=== PATIENT | female | born 1935 | race Caucasian/White ===

== ENCOUNTER 2017-06-29 08:46 | Day surgery (SDC) | payer MEDICARE, MEDICAID ==
[2017-06-29] MEDS ORDERED: Sodium Chloride 0.9% 20 ML ONE (09:05)
[2017-06-29 10:51] VITALS: TEMP 98.1
[2017-06-29 12:45] VITALS: BP 140/65
--- NOTE | 2017-06-29 13:48 | CON ---
DATE OF CONSULTATION: 06/29/2017 NEPHROLOGY CONSULTATION REASON FOR CONSULTATION: End-stage kidney disease and anemia. HISTORY OF PRESENT ILLNESS: This is an 82-year-old female who had a significant drop in hemoglobin to 8 and significant and was sent over to the hospital for transfusion. The patient denies an y nausea, vomiting or chest pain. PAST MEDICAL HISTORY: Significant for hypertension, end-stage renal disease, history of AV fistula, history of tunneled dialysis catheter, history of renal cell carcinoma with mets and chemotherapy, history of nephrectomy. ALLERGIES: Reviewed. HOME MEDICATIONS: List reviewed. REVIEW OF SYSTEMS: A 15-point review of systems was performed and was negative except for positives noted above. GENERAL: Weakness- HEAD: Headache- NECK: No swelling or lumps. NOSE: No epistaxis or discharge. EYES: No diplopia or pain. RESPIRATORY: Dyspnea- CARDIOVASCULAR: Chest pain- GASTROINTESTINAL: Nausea- /STAFF THERAPIST: Hematuria- MUSCULOSKELETAL: No joint pain. NEUROPSYCHIATIC SYSTEMS: No suicidal ideation. No ideation. SKIN: Denies any rash or ulcer. CONSTITUTIONAL: No fever or chills. PHYSICAL EXAMINATION: GENERAL: Patient is awake, alert. VITAL SIGNS: Afebrile, pulse 70, breathing at 16, blood pressure 120/70. GENERAL APPEARANCE AND MENTAL STATUS: Fair. HEAD/NECK: Normocephalic. Atraumatic. EYES: EOMI. No deformity. EARS: Clear. No ulcers. NOSE: Intact. No lesions. MOUTH: Clear. No discharge. THROAT: Clear. No exudate. LUNGS: Clear. No crackles. CARDIAC: S1, S2. No rub. ABDOMEN: Benign. BS+. GENITALIA/RECTUM: Davila absent. BACK/EXTREMITIES: Edema 0+ Ulcer- NEUROLOGICAL: Alert and motor intact. SKIN: Rash- Bruise- LYMPHATICS: Edema- Ulcer- LABORATORY: Pending. ASSESSMENT AND RECOMMENDATIONS: 1. Stage 6 chronic kidney disease. We will plan dialysis today. 2. Anemia, status post transfusion. 3. Hyperkalemia. Plan dialysis.
== END 2017-06-29 12:45 | disposition home or self-care (01) ==
LOC: ONC/OP 08:46
PROVIDERS: ATTEND Internal Medicine Nephrology
PROC: 30233N1 Transfusion of Nonautologous Red Blood Cells into Peripheral Vein, Percutaneous Approach (ICD-10-PCS; principal; 2017-06-29)
DX: D64.9 Anemia, unspecified (principal); I12.0 Hypertensive chronic kidney disease with stage 5 chronic kidney disease or end stage renal disease; N18.6 End stage renal disease; E87.5 Hyperkalemia; Z99.2 Dependence on renal dialysis; Z90.5 Acquired absence of kidney; Z98.890 Other specified postprocedural states; Z85.51 Personal history of malignant neoplasm of bladder; Z85.528 Personal history of other malignant neoplasm of kidney; Z92.21 Personal history of antineoplastic chemotherapy
CPT/HCPCS: 36430; 86850; 86900; 86901; A4216; J1642; P9016

== ENCOUNTER 2017-11-18 02:44 | Inpatient (IN) | payer MEDICARE, MEDICAID ==
[2017-11-18 03:24] LABS: #Basophils 0.1 thou/uL (0.0-0.2); #Eosinphils 0.2 thou/uL (0.0-0.7); #Lymphocytes 0.9 thou/uL (1.20-3.40); #Monocytes 1.5 thou/uL (0.11-0.59); #Neutrophils 12.2 thou/uL (1.40-6.50); %Basophils 0.6 % (0.0-1.0); %Eosinophils 1.3 % (0.0-10.0); %Lymphocytes 6.1 % (21.0-51.0); Hemoglobin 11.9 g/dL (12.0-16.0); Mean Corpuscular HGB CONC 32.2 g/dL (32.0-36.0); Mean Corpuscular Hemoglobin 29.4 pg (27.0-31.0); Mean Corpuscular Volume 91.4 fl (81.0-99.0); Mean Platelet Volume 8.1 fL (7.4-10.4); Platelet Count 219 thou/uL (130-400); RBC Distribution Width 18.5 % (11.5-14.5); Red Blood Cell (RBC) Count 4.04 mill/uL (4.20-5.40); White Blood Cell (WBC) Count 14.9 thou/uL (4.8-10.8)
[2017-11-18 03:30] LABS: INR-International Normal Ratio 1.2; Prothrombin Time 15.3 SEC (12.0-14.7)
[2017-11-18 03:31] LABS: PTT 55.5 SEC (22.9-36.1)
[2017-11-18 03:47] LABS: CKMB 1.1 ng/mL (0-6.6); Troponin I 0.037 ng/mL (< 0.028)
[2017-11-18 04:04] LABS: Chloride 95 mmol/L (98-107)
[2017-11-18 04:05] LABS: Calcium 9.2 mg/dL (7.8-10.44); Glucose 134 mg/dL (83-110); Potassium 3.9 mmol/L (3.5-5.1); Sodium 137 mmol/L (136-145)
[2017-11-18 04:07] LABS: Carbon Dioxide 28 mmol/L (23-31)
[2017-11-18 04:09] LABS: Calc. Creatinine Clearance 0 mL/min (70-130); Estimated GFR-MDRD 8
[2017-11-18 04:10] LABS: BUN (Urea Nitrogen) 36 mg/dL (9.8-20.1)
[2017-11-18 04:18] LABS: Anion Gap 18 mmol/L (10-20)
[2017-11-18] MEDS ORDERED: Ondansetron HCl/PF 4 MG/2 ML Vial IVP PRN ×2 (06:36→07:32)
[2017-11-18] MEDS ORDERED: Ondansetron ODT 4 MG TAB SL PRN (06:36)
[2017-11-18] MEDS ORDERED: Acetaminophen 325 MG TAB PO PRN ×2 (06:36→07:32)
[2017-11-18] MEDS ORDERED: Zolpidem Tartrate 5 MG TAB PO PRN (07:32)
[2017-11-18] MEDS ORDERED: Midodrine HCl 5 MG TAB PO PRN (08:00)
[2017-11-18] MEDS ORDERED: rOPINIRole HCl 1 MG TAB PO PRN ×2 (08:00)
[2017-11-18] MEDS ORDERED: HYDROmorphone 2 MG TAB PO PRN (08:00)
[2017-11-18] MEDS ORDERED: Albuterol Sulfate 2.5 mg/3 ml Neb NEB PRN (08:00)
--- NOTE | 2017-11-18 08:28 | HP ---
PRIMARY CARE PROVIDER: Dr. Pedro Luis Sosa in [place]. Patient transferred from [place] [facility] to [facility], referred to [facility] for non-ST elevation NE. HISTORY OF PRESENT ILLNESS: The patient got suddenly short of breath last night. No chest pain, no history of orthopnea or paroxysmal nocturnal dyspnea. It is pertinent the patient has lung cancer an d end-stage renal disease. Her last dialysis was 48 hours ago. She was taken by EMS to the [place] [facility] and found to have oxygen saturations in the very low numbers. She was only in the 80s with a nonrebreather on initially. She gives no history of swelling in her extremities, paroxysmal nocturnal dyspnea. She does have hemoptysis for the past several months, her providers are aware of this. She has had lung cancer in the right lower lobe for 3-4 years. She has had a large pleural ef fusion drained in the past. PAST MEDICAL HISTORY: End-stage renal disease, post-bladder resection and bilateral nephrectomies fo r bladder cancer. She has been on hemodialysis since 2007. She had an episode of atrial fibrillatio n 2 months ago. She has a history of hypertension, but states her blood pressure is low now. CURRENT MEDICATIONS: Albuterol HFA 2 puffs q.4h. p.r.n., diltiazem 240 mg a day, Dilaudid 1 mg p.o. q.4h. p.r.n. pain, lovastatin 20 mg a day, Renvela 2.4 grams 3 times a day with meals, Requip 1 mg at bedtime, midodrine 5 mg for low blood pressure, Zoloft 50 mg a day. ALLERGIES: No known drug allergies. PAST SURGICAL HISTORY: In addition to the bladder and kidney resection, she has had an appendectomy and a cholecystectomy. FAMILY HISTORY: Mother and father have passed, no known diseases in either of them. SOCIAL HISTORY: . Son Harpal Osorio is at bedside. CODE STATUS: Full code status for the t osmin being and has no living will. He is surrogate decision maker. She does not smoke or drink alcoh ol ever. REVIEW OF SYSTEMS: GENERAL: No fever, chills, headaches, dizziness or syncope. EYES: No double vision, blurred vision, flashing lights. ENT: No ear pain or drainage. No nasal bleeding. No trouble swallowing. CARDIAC: Shortness of breath, resolved on oxygen. She has had no chest pain. RESPIRATORY: No cough, no wheezing or asthma. She has had a chronic off and on cough with some hemo ptysis related to her lung cancer. GASTROINTESTINAL: No nausea, vomiting, diarrhea or constipation. GENITOURINARY: No urine. MUSCULOSKELETAL: No pain or swelling in her arms or legs. NEUROLOGIC: No strokes, seizures or focal weakness. PSYCHIATRIC: Some anxiety and depression, currently doing well. SKIN: She bruises easily. No rash. HEME/LYMPH: No tender or swollen lymph nodes in axilla, inguinal or cervical area. PHYSICAL EXAMINATION: GENERAL: Alert, oriented, cooperative, pleasant lady currently. VITAL SIGNS: O2 sat is 93 on 2 liters per nasal cannula. Blood pressure 151/71, pulse 81, respirati ons 18, temperature 98.4. HEENT: Pupils are equal, round and reactive to light. Extraocular movements are intact. Sclerae wh ite. Tympanic membranes are clear. Oral mucous membranes are wet. NECK: No jugular venous distention, adenopathy or thyromegaly. CHEST: Dull on the right to mid shoulder blade, some basilar rales on the left, rales and rhonchi on the right, anterior breath sounds good. HEART: Regular rate and rhythm. First and second heart sounds clear. No appreciated murmurs or gal lops. ABDOMEN: Soft, bowel sounds normal, no bruits, no hepatosplenomegaly. Bowel sounds present. EXTREMITIES: No cyanosis, clubbing or edema. PULSES: Carotid, radial, femoral, and dorsalis pedis pulses intact. SKIN: Minor ecchymoses about the arms. Her head and under arms are hairless. HEME/LYMPHATIC SURVEY: No tender or swollen lymph nodes in axilla, inguinal area. NEUROLOGICAL: Cranial nerves II-XII are intact. Moves all extremities. Sensation is intact. X-RAY FINDINGS: Chest x-ray reviewed by me, borderline, no cardiomegaly, what appears to be a combin ation of a mass lesion and a large pleural effusion on the right, some blunting of the left costophre gladis angle, indwelling MediPort. EKG: Regular sinus rhythm, left ventricular hypertrophy with repola rization abnormality, reviewed by me. LABORATORY: Comp metabolic profile: BUN 36, creatinine 4.88, blood sugar 134. Troponin 0.037, 0.07 0. BNP 9000+. White count 14.9, hemoglobin 11.9, platelet count 219,000. ADMITTING DIAGNOSES: 1. Acute respiratory failure with hypoxemia. 2. Lung cancer with large right pleural effusion. 3. Elevated troponins. 4. History of atrial fibrillation. 5. End-stage renal disease on hemodialysis. 6. Atrial fibrillation, now in regular sinus rhythm. 7. Dyslipidemia. PLAN: 1. Continue O2 therapy. 2. Right side decubitus, probable chest x-ray, probable consult for Pulmonary for therapeutic thorac entesis. 3. Consult Dr. Gunn for hemodialysis. 4. Consult Dr. Welsh, her rn orthopaedics, for her elevated troponins, which I suspect are merely d emand ischemia. 5. Continue selected home medicines.
--- NOTE | 2017-11-18 09:10 | RAD ---
UPRIGHT PORTABLE CHEST 1 VIEW: Date: 11/18/17 HISTORY: 82-year-old female with history of chest pain, with personal history of lung cancer with shortness of breath. COMPARISON: 07/17/12. FINDINGS: There is fairly extensive abnormal parenchymal opacity changes in the right mid and lower lung zone w ith right pleural effusion. There is some minimal left pleural effusion and some bilateral vascular c ongestion. There is patchy bone demineralization. IMPRESSION: Large area of abnormal alveolar parenchymal opacity in the right mid and lower lung zone with right p leural effusion. This is nonspecific and could possibly represent underlying neoplasm versus some keysha eolar pneumonia. Minimal pleural and parenchymal changes in the left base with evidence for small lef t pleural effusion. Depending on concern, follow-up chest CT scan might give additional information. No intervening films available between 07/17/12 and today's study. POS: [facility]
[2017-11-18 09:43] LABS: Troponin I 0.085 ng/mL (< 0.028)
--- NOTE | 2017-11-18 10:10 | RAD ---
AP VIEW CHEST RIGHT DECUBITUS VIEW: HISTORY: Pleural effusion. HISTORY: AP view chest is obtained on 11/18/17. COMPARISON: Comparison was made to a previous exam from earlier on 11/18/17. FINDINGS: AP view chest demonstrates cardiomegaly. Calcification of the aorta is seen. There is a right jugul ar MediPort catheter in place. There is a small right-sided pleural effusion. Areas of airspace opacity remain in the right lung ba se. The right-sided effusion flows and is seen minimally but is not large. Cardiomegaly is noted. IMPRESSION: Small right-sided pleural effusion with area of opacity in the right lung base concerning for a possi ble pneumonia or mass. POS: [facility]
--- NOTE | 2017-11-18 12:32 | CON ---
DATE OF CONSULTATION: 11/18/2017 SUBJECTIVE: This 82-year-old female being seen for end-stage renal disease. REASON FOR CONSULTATION: Stage 6 chronic kidney disease on maintenance hemodialysis. HISTORY OF PRESENT ILLNESS: This is a very pleasant 82-year-old female on dialysis Tuesday, Tuesday , and Tuesday, who presented to the hospital with severe congestive heart failure like symptoms and dy spnea. The patient was started on dialysis with improvement in symptoms. The patient had orthopnea and PND. PAST MEDICAL HISTORY: Hypertension, end-stage renal disease, History of bladder resection, bladder cancer with distant mets, history of atrial fibrillation, history of congestive heart failure, hypert ension, history of AV fistula, history of dialysis catheter. HOME MEDICATIONS: List reviewed. HOSPITAL MEDICATIONS: List reviewed. ALLERGIES: Reviewed. SOCIAL HISTORY: No alcohol or drug use. FAMILY HISTORY: Negative for ESRD. REVIEW OF SYSTEMS: Fifteen point review of systems was performed and negative. GENERAL: Weakness- HEAD: Headache- NECK: No swelling or lumps. NOSE: No epistaxis or discharge. EYES: No diplopia or pain. RESPIRATORY: Dyspnea- CARDIOVASCULAR: Chest pain- GASTROINTESTINAL: Nausea- /RECORDAK OPERATOR: Hematuria- MUSCULOSKELETAL: No joint pain. NEUROPSYCHIATIC SYSTEMS: No suicidal ideation. No ideation. SKIN: Denies any rash or ulcer. CONSTITUTIONAL: No fever or chills. PHYSICAL EXAMINATION: GENERAL: Patient is awake, alert. VITAL SIGNS: Afebrile, pulse 81, breathing 16, blood pressure 151/71. OBJECTIVE: See above. Awake, alert, in no acute distress. GENERAL APPEARANCE AND MENTAL STATUS: Fair. HEAD/NECK: Normocephalic. Atraumatic. EYES: EOMI. No deformity. EARS: Clear. No ulcers. NOSE: Intact. No lesions. MOUTH: Clear. No discharge. THROAT: Clear. No exudate. LUNGS: Clear. No crackles. CARDIAC: S1, S2. No rub. ABDOMEN: Benign. BS+. GENITALIA/RECTUM: Davila absent. BACK/EXTREMITIES: Edema 0+ Ulcer- NEUROLOGICAL: Alert and motor intact. SKIN: Rash- Bruise- LYMPHATICS: Edema- Ulcer- LABORATORY: Potassium 3.9. ASSESSMENT AND PLAN: 1. Stage 6 chronic kidney, on hemodialysis. 2. Hypertension, stable. 3. Anemia, stable. 4. Medications based on glomerular filtration rate are appropriate.
[2017-11-18] MEDS: Cyanocobalamin (Vitamin B-12) 1,000 MCG TAB PO SCH (13:09)
[2017-11-18] MEDS: Sevelamer Carbonate 800 MG TAB PO SCH ×2 (13:09→18:14)
[2017-11-18] MEDS ORDERED: Simvastatin 5 MG TAB PO SCH (21:00)
--- NOTE | 2017-11-18 23:08 | CON ---
DATE OF CONSULTATION: 11/18/2017 HISTORY OF PRESENT ILLNESS: Ms. Charo Osorio is an 82-year-old white female from [place] who has been followed by Dr. Welsh in the past. In 2011, she underwent cardiac evaluation and had a normal Cardiolite. She was seen again in 09/2016 to be evaluated for dyspnea. She underwent Lexiscan Cardiolite testing, which was probably normal. Also, echocardiogram revealed ejection fraction of 40%-45% with evidence for diastolic dysfunction and moderate to severe mitral regurgitation. She was seen again in the office in 09/2017 for new onset atrial fibrillation. Due to her metastatic lung cancer, there was consideration of hospice and so ultimately the decision was made not to anticoagulate her with Coumadin. She was seen again on 10/25/2017. She was back in sinus rhythm at that time and apparently, she was on hospice during that office visit. She now is admitted with episode of PND last night where she awoke very short of breath. She was taken by EMS to the [place] emergency room and had oxygen saturation in the 80s. She then was transferred here for further care. She denies any chest discomfort. PAST MEDICAL HISTORY: End-stage renal disease on dialysis for approximately 10 years. She had bilateral nephrectomies for bladder cancer. Episode of atrial fibrillation 2 months ago. History of hypertension, on no antihypertensives at this time. Right lung cancer that she has had for 3-4 years. MEDICATIONS: Diltiazem 240 daily, Dilaudid p.r.n., albuterol 2 puffs q.5-6 hours p.r.n., lovastatin 20 daily, Renvela 2.4 grams t.i.d., Requip 1 mg at bedtime, midodrine for low blood pressure, Zoloft 50 daily. ALLERGIES: None. SOCIAL HISTORY: She does not smoke or drink. FAMILY HISTORY: No history of coronary artery disease. REVIEW OF SYSTEMS: Twelve point review of systems otherwise unremarkable. PHYSICAL EXAMINATION: VITAL SIGNS: Blood pressure 153/67, pulse of 93 per minute, sinus rhythm on the monitor. HEENT: PERRL. NECK: Supple. CHEST: Reveals rales at the left base and rales in the mid lung field on the right. CARDIAC: S1, S2 normal, without any S3, S4 or murmurs. ABDOMEN: Normal bowel sounds, without tenderness, organomegaly. EXTREMITIES: Revealed no clubbing, cyanosis or edema. NEUROLOGIC: Grossly intact. SKIN: Warm and dry. LABORATORY DATA AND IMAGING: Laboratory EKG reveals normal sinus rhythm, possible left atrial enlargement. Intraventricular conduction delay with QRS of 138 milliseconds. Chest x-ray reveals right pleural effusion. Troponin I is up to 0.085. BNP 9166.3. Sodium 137, potassium 3.9, chloride 95, carbon dioxide 28, BUN 36, creatinine 4.88, INR 1.2, hemoglobin 11.9, hematocrit 36.9, white count 14,900, platelets 219,000. Echocardiogram revealed study to be technically difficult. There was severe left ventricular systolic dysfunction with ejection fraction of 25%-30%, moderate mitral regurgitation, aortic valvular sclerosis and mild tricuspid regurgitation. IMPRESSION: 1. Cardiomyopathy with fall in her ejection fraction from 40%-45% in 10/2016 to 25%-30% at this time. 2. Intraventricular conduction delay with QRS of 138 milliseconds. I am uncertain if this is a new finding. 3. Demand ischemia, I doubt that she has had myocardial infarction, especially with her renal failure. 4. Acute respiratory failure with hypoxemia. 5. Right lung cancer. 6. Paroxysmal atrial fibrillation with episode in 09/2017. At the present time , she is in sinus rhythm. 7. End-stage renal disease on dialysis. 8. Hyperlipidemia. 9. History of hypertension; however, she is on no medications for that at this time. PLAN: With her current blood pressures, I would place her on very low dose carvedilol. I also discussed with the patient and her daughter, the other options that we have although with her metastatic lung cancer, her longevity is probably not that great. We did discuss the rationale for a defibrillator in the future and the reason for a LifeVest during the interim. She will give consideration to these and we will further discuss this. NATTY
[2017-11-19 05:36] LABS: #Basophils 0.1 thou/uL (0.0-0.2); #Eosinphils 0.2 thou/uL (0.0-0.7); #Lymphocytes 1.1 thou/uL (1.20-3.40); #Monocytes 1.4 thou/uL (0.11-0.59); #Neutrophils 7.9 thou/uL (1.40-6.50); %Basophils 0.5 % (0.0-1.0); %Eosinophils 1.6 % (0.0-10.0); %Lymphocytes 10.1 % (21.0-51.0); %Monocytes 12.8 % (0.0-10.0); Mean Corpuscular HGB CONC 30.7 g/dL (32.0-36.0); Mean Corpuscular Hemoglobin 28.1 pg (27.0-31.0); Mean Corpuscular Volume 91.6 fl (81.0-99.0); Mean Platelet Volume 8.3 fL (7.4-10.4); Platelet Count 218 thou/uL (130-400); RBC Distribution Width 18.7 % (11.5-14.5); Red Blood Cell (RBC) Count 3.93 mill/uL (4.20-5.40); White Blood Cell (WBC) Count 10.5 thou/uL (4.8-10.8)
[2017-11-19 06:11] LABS: Anion Gap 19 mmol/L (10-20); BUN (Urea Nitrogen) 20 mg/dL (9.8-20.1); Calc. Creatinine Clearance 9 mL/min (70-130); Carbon Dioxide 24 mmol/L (23-31); Chloride 99 mmol/L (98-107); Estimated GFR-MDRD 13; Glucose 81 mg/dL (83-110); Potassium 4.2 mmol/L (3.5-5.1); Sodium 138 mmol/L (136-145)
[2017-11-19] MEDS: Cyanocobalamin (Vitamin B-12) 1,000 MCG TAB PO SCH (08:14)
[2017-11-19] MEDS: Sevelamer Carbonate 800 MG TAB PO SCH ×3 (08:14→17:42)
[2017-11-19 11:30] VITALS: BP 140/63; TEMP 98
--- NOTE | 2017-11-19 12:16 | PRG ---
DATE OF SERVICE: 11/19/2017 SUBJECTIVE: An 82-year-old female being seen for end-stage renal disease. The patient denies any na usea, vomiting or chest pain. PHYSICAL EXAMINATION: GENERAL: Patient is awake, alert. VITAL SIGNS: Afebrile, pulse 86, breathing 16, blood pressure 157/69. HEAD/NECK: Normocephalic. Atraumatic. EYES: EOMI. No deformity. EARS: Clear. No ulcers. NOSE: Intact. No lesions. MOUTH: Clear. No discharge. THROAT: Clear. No exudate. LUNGS: Clear. No crackles. CARDIAC: S1, S2. No rub. ABDOMEN: Benign. BS+. GENITALIA/RECTUM: Davila absent. BACK/EXTREMITIES: Edema 0+ Ulcer- NEUROLOGICAL: Alert and motor intact. SKIN: Rash- Bruise- LYMPHATICS: Edema- Ulcer- LABORATORY DATA: Show hemoglobin 11. ASSESSMENT AND RECOMMENDATIONS: 1. Stage 6 chronic kidney disease, continue hemodialysis Tuesday, Tuesday, and Tuesday. 2. Hypertension, stable. 3. Anemia, stable. Advise the patient on fluid restriction.
--- NOTE | 2017-11-19 14:17 | PDOC.PN ---
- Subjective Encounter Start Date: 11/19/17 Encounter Start Time: 14:15 Subjective: seen and examined very eager to go home - Objective Vital Signs & Weight: Vital Signs (12 hours) Temp Pulse Resp BP Pulse Ox 11/19/17 11:28 98.0 F 83 17 140/63 94 L 11/19/17 08:09 98.4 F 86 17 157/69 H 95 11/19/17 08:00 98.4 F 86 17 11/19/17 05:11 99 F 83 21 H 165/72 H 93 L 11/19/17 02:48 92 L 11/19/17 02:47 92 L Weight Weight 103 lb 14.4 oz I&O: 11/18/17 11/19/17 11/20/17 06:59 06:59 06:59 Intake Total 180 Output Total 0 Balance 180 Result Diagrams: 11/19/17 04:52 11/19/17 04:52 Phys Exam - Physical Examination Constitutional: NAD HEENT: PERRLA, moist MMs, sclera anicteric, TM's clear Neck: no nodes, no JVD, supple, full ROM Respiratory: no wheezing, no rales, no rhonchi, clear to auscultation bilateral Cardiovascular: RRR, no significant murmur, no rub Gastrointestinal: soft, non-tender, no distention, positive bowel sounds Musculoskeletal: no edema, pulses present Dx/Plan (1) Acute and chronic respiratory failure with hypoxia Code(s): J96.21 - ACUTE AND CHRONIC RESPIRATORY FAILURE WITH HYPOXIA Status: Acute (2) ESRD (end stage renal disease) Code(s): N18.6 - END STAGE RENAL DISEASE Status: Acute (3) Lung cancer Code(s): C34.90 - MALIGNANT NEOPLASM OF UNSP PART OF UNSP BRONCHUS OR LUNG Status: Acute (4) CHF (congestive heart failure) Code(s): I50.9 - HEART FAILURE, UNSPECIFIED Status: Acute - Plan cont current plan of care, plan discussed w/ family, PT/OT, administrator social welfare, respiratory therapy Discharge if ok with cardiology -: possible Life vest prior to ? Defibrillator * .
--- NOTE | 2017-11-19 14:29 | PDOC.EVN ---
Event Note - Event Note Event Note: Cannot be on Acei--patient has renal failure
[2017-11-19] MEDS ORDERED: Carvedilol 3.125 MG TAB PO SCH (17:00)
--- NOTE | 2017-11-19 19:37 | DIS ---
Patient was seen and examined today, very eager to go home, noted with the following vital signs. Af ebrile, temperature 98, pulse 83, respiratory rate of 17, O2 sat of 94% with blood pressure 140/63. The patient is an 82-year-old female patient, end-stage renal disease, who presented here with shortn ess of breath, got diagnosed with acute hypoxic respiratory failure. The patient did undergo hemodia lysis with ultrafiltration as tolerated by hemodynamics and has done very well afterwards. Patient w as seen in consultation by her integration specialist as well as her regional sales executive, Dr. Hazel. Discussion wa s raised as relates to defibrillator versus LifeVest given the fact that this patient's ejection frac tion has dropped. Patient after discussing with Dr. Hazel will have some weeks to decide on which way to go. In any case, the patient is very eager to go home and will be discharged today on the fo llowing medications, albuterol q.4 hours p.r.n., vitamin B12, diltiazem 250 mg p.o. daily, Dilaudid 1 mg q.4 hours p.r.n., lovastatin 20 mg p.o. q.p.m., midodrine 5 mg daily p.r.n., ropinirole 1 mg p.o. daily p.r.n. and bedtime p.r.n., Zoloft 50 mg p.o. daily, Renvela 2.4 grams p.o. t.i.d. with meal. DISCHARGE INSTRUCTIONS: 1. Patient to follow up with Cardiology to continue with the discussion as to LifeVest versus a defi brillator. 2. Continue with hemodialysis as an outpatient and follow up with the integration specialist. 3. Further management to be depended on the clinical course. The patient to represent here in case of any relapse or deterioration in clinical condition. Total time spent including [id number] encounter 31 minutes.
--- NOTE | 2017-12-21 15:05 | EKG ---
Test Reason : Blood Pressure : / mmHG Vent. Rate : 094 BPM Atrial Rate : 094 BPM P-R Int : 176 ms QRS Dur : 138 ms QT Int : 376 ms P-R-T Axes : 058 -50 110 degrees QTc Int : 470 ms Normal sinus rhythm Possible Left atrial enlargement Left axis deviation Left ventricular hypertrophy with QRS widening and repolarization abnormality Possible Lateral infarct , age undetermined Abnormal ECG Confirmed by MEGHAN MCKAY ([id number]), editor & co founder RICHARD LICEA ([id number]) on 12/21/2017 3:04:54 PM Referred By: WOODY Confirmed By:MEGHAN MCKAY
== END 2017-11-19 17:40 | disposition home or self-care (01) | DRG 291 ==
LOC: ERS 02:44 → 2SW 04:47 → OBSVTOIN 07:43 → 2NO 15:54
PROVIDERS: ADMIT Internal Medicine; ATTEND Internal Medicine
PROC: 5A1D70Z Performance of Urinary Filtration, Intermittent, Less than 6 Hours Per Day (ICD-10-PCS; principal; 2017-11-18)
DX: I13.2 Hypertensive heart and chronic kidney disease with heart failure and with stage 5 chronic kidney disease, or end stage renal disease (principal); J96.21 Acute and chronic respiratory failure with hypoxia; J90 Pleural effusion, not elsewhere classified; I24.8 Other forms of acute ischemic heart disease; I08.3 Combined rheumatic disorders of mitral, aortic and tricuspid valves; N18.6 End stage renal disease; I42.9 Cardiomyopathy, unspecified; C34.31 Malignant neoplasm of lower lobe, right bronchus or lung; I48.0 Paroxysmal atrial fibrillation; I50.33 Acute on chronic diastolic (congestive) heart failure; Z85.51 Personal history of malignant neoplasm of bladder; Z99.2 Dependence on renal dialysis; Z95.828 Presence of other vascular implants and grafts; Z79.51 Long term (current) use of inhaled steroids; E78.5 Hyperlipidemia, unspecified; D63.1 Anemia in chronic kidney disease; F41.9 Anxiety disorder, unspecified
CPT/HCPCS: 36415; 71045; 80048; 82553; 83880; 84484; 85025; 85610; 85730; 90935; 93005; 93306; 94640; G0257; J2405; J7611

== ENCOUNTER 2017-11-24 21:41 | Inpatient (IN) | payer MEDICARE, MEDICAID ==
[~2017-11-24 21:41] MED LIST: ISOVUE-370 76%-LOCM 1 ML ONE
--- NOTE | 2017-11-24 23:03 | RAD ---
RADIOGRAPH CHEST 1 VIEW: Date: 11/24/17 Time: 10:28 p.m. HISTORY: 82-year-old female with history of right lower lung tumor. Presents with dyspnea and cough. COMPARISON: 11/18/17. FINDINGS: Again noted is the very large mass-like opacity occupying a large portion of the right mid and lower lung zones. There is an associated right pleural effusion. There is an apparently new large region of additional increased density between this large right pulmonary mass and the heart shadow. There has been interval increase in volume of the left pleural effusion. Cardiomegaly. No pulmonary edema or p neumothorax. Right internal jugular implantable vascular access port is again noted. No pneumothorax. IMPRESSION: 1. Bilateral moderate sized pleural effusions. The one on the left has increased in volume since the prior study. 2. Cardiomegaly without pulmonary edema. 3. Very large right pulmonary mass. 4. Apparent additional new large dense opacity at the right medial lower lung zone. MARISOL [] POS: [facility]
[2017-11-24 23:06] LABS: #Eosinphils 0.3 thou/uL (0.0-0.7); #Lymphocytes 1.7 thou/uL (1.20-3.40); #Monocytes 1.4 thou/uL (0.11-0.59); #Neutrophils 10.2 thou/uL (1.40-6.50); %Basophils 0.2 % (0.0-1.0); %Eosinophils 2.5 % (0.0-10.0); %Lymphocytes 12.1 % (21.0-51.0); %Neutrophils 75.2 % (42.0-75.0); Hemoglobin 12.5 g/dL (12.0-16.0); Mean Corpuscular Volume 90.7 fl (81.0-99.0); Mean Platelet Volume 7.9 fL (7.4-10.4); Platelet Count 320 thou/uL (130-400); RBC Distribution Width 18.2 % (11.5-14.5); Red Blood Cell (RBC) Count 4.29 mill/uL (4.20-5.40); White Blood Cell (WBC) Count 13.6 thou/uL (4.8-10.8)
[2017-11-24 23:12] LABS: INR-International Normal Ratio 1.1; PTT 36.1 SEC (22.9-36.1); Prothrombin Time 14.3 SEC (12.0-14.7)
[2017-11-24 23:29] LABS: ALT (SGPT) Less than 7 U/L (8-55); AST (SGOT) 20 U/L (5-34); Albumin 3.2 g/dL (3.4-4.8); Alkaline Phosphatase 84 U/L (40-150); Anion Gap 18 mmol/L (10-20); BUN (Urea Nitrogen) 23 mg/dL (9.8-20.1); Bilirubin, Total 0.4 mg/dL (0.2-1.2); Calc. Creatinine Clearance 0 mL/min (70-130); Carbon Dioxide 26 mmol/L (23-31); Chloride 99 mmol/L (98-107); Estimated GFR-MDRD 9; Glucose 97 mg/dL (83-110); Potassium 4.7 mmol/L (3.5-5.1); Protein, Total 7.2 g/dL (6.0-8.3); Sodium 138 mmol/L (136-145)
[2017-11-24 23:31] LABS: CKMB 0.6 ng/mL (0-6.6); Troponin I 0.024 ng/mL (< 0.028)
[2017-11-25] MEDS ORDERED: Acetaminophen 325 MG TAB PO PRN ×2 (03:14→08:53)
[2017-11-25] MEDS ORDERED: Piperacillin/Tazobactam 4.5 GM in Sodium Chloride 0.9% 100 ML IVPB SCH (06:00)
[2017-11-25] MEDS ORDERED: Acetaminophen 650 MG Suppository PR PRN (08:53)
[2017-11-25] MEDS ORDERED: Bisacodyl 5 MG TAB PO PRN (08:53)
[2017-11-25] MEDS ORDERED: Cefepime 2 GM in Sodium Chloride 0.9% 100 ML IVPB SCH (09:00)
--- NOTE | 2017-11-25 09:16 | CT ---
PRELIMINARY REPORT/[facility]/EMERGENCY AFTER HOURS PROCEDURE: EXAM: CT Angiography Chest With Intravenous Contrast EXAM DATE/TIME: Exam ordered 11/25/2017 12:51 AM CLINICAL HISTORY: 82 years old, female; Signs and symptoms; Cough and dyspnea and shortness of breath; Symptoms not spe cified; Patient HX: Er 9; HX of tumor in right lower lung. No chemo or radiation. Difficulty breathin g x2 days. Cough. Cardiac HX. Was seen here last . Symptoms described as tightness, 1 week of worsening SOB, pacheco and productive cough TECHNIQUE: Axial computed tomographic angiography images of the chest with intravenous contrast using pulmonary embolism protocol. MIP reconstructed images were created and reviewed. COMPARISON: No relevant prior studies available. FINDINGS: Pulmonary arteries: Prominence of the central pulmonary arteries suggests pulmonary arterial hyperten kevin. No PE. Aorta: Atherosclerotic aorta. No aneurysm. Lungs: 13 cm heterogeneously enhancing right lower lobe lung mass, compatible with malignancy. Multiple pleural-based nodules of the right hemithorax consistent with pleural metastatic disease. Complete lobar atelectasis of the left lower lobe with occlusion of the left lower lobe airways, pres umably by mucous plugging. Pleural space: Small bilateral pleural effusions. No pneumothorax. Heart: Cardiomegaly. No significant pericardial effusion. No evidence of RV dysfunction. Mediastinum: Esophagus is unremarkable. Bones/joints: No acute fracture. No dislocation. Soft tissues: Unremarkable. Lymph nodes: 8mm nodule in the right middle lobe associated with the minor fissure may be a normal in trapulmonary lymph node, pleural metastasis, or indeterminate pulmonary nodule. Mediastinal lymphadenopathy measuring up to 1.2 cm in short axis. Liver: Completely visualized hepatosplenomegaly. IMPRESSION: 1. 13 cm heterogeneously enhancing right lower lobe lung mass, compatible with malignancy. Multiple p leural-based nodules of the right hemithorax consistent with pleural metastatic disease. 2. Complete lobar atelectasis of the left lower lobe with occlusion of the left lower lobe airways, p resumably by mucous plugging. 3. Prominence of the central pulmonary arteries suggests pulmonary arterial hypertension. No PE. 4. Completely visualized hepatosplenomegaly. 5. Small bilateral pleural effusions. Thank you for allowing us to participate in the care of your patient. Dictated and Authenticated by: Celso Munson MD 11/25/2017 1:31 AM Central Time ([place] & [place]) FINAL REPORT CT ANGIOGRAM CHEST: HISTORY: Right lung cancer. COMPARISON: None. TECHNIQUE: A CT angiogram of the chest is performed in the axial plane. Bilateral oblique and coronal three-dim ensional reformatted images are submitted for interpretation. FINDINGS: This report is in agreement with the preliminary report by [facility]. No evidence of pulmonary artery embolism to the level of the segmental arteries. There are multifocal pleural-based masses throughout the right hemithorax, worrisome for metastases. Complete lobar consolidation of the left and right lower lobes is noted, with heterogeneous enhancem ent, which may be due to infection, tumor. POS: [facility]
[2017-11-25] MEDS ORDERED: Cefepime 2 GM, Syringe 2.5 ML in Sodium Chloride 0.9% 10 ML SLOW IVP SCH (10:00)
[2017-11-25] MEDS: Heparin 5,000 UNITS/ML VIAL SC SCH ×3 (11:42→21:16)
--- NOTE | 2017-11-25 12:04 | CON ---
DATE OF CONSULTATION: 11/25/2017 This consultation encompassed 70 minutes of time. Of that time, greater than 50% was spent speaking with the patient and/or on the patient's unit. I have communicated with consulting physician, Dr. Amarjit conte. I have reviewed the notes in the chart, but most of the history is gleaned from talking to the patient. REASON FOR CONSULTATION: Left lower lobe atelectasis on CT scan. HISTORY OF PRESENT ILLNESS: This patient had just been admitted to the hospital several days ago bef ore being discharged. She came back last night with tightness in her chest with symptoms constant ov er the past week. She underwent a CT of the chest last night, which I have reviewed personally and a lso reviewed the radiologist's report. She has a 13 cm heterogeneous enhancing right lower lobe mass . She has almost complete atelectasis left lower lobe with occlusion of the left lower lobe bronchus . She states that she has never been a smoker in the past. She did tell me that she has been diagno sed with stage IV bladder cancer which started in the bladder metastasis to the kidneys and then to t lung. She had been undergoing cancer care in [place]. Her last chemotherapy was in July. She was told that the cancer was not responding and there was nothing else that could be done and t [facility] have suggested hospice care at home. The patient met with the hospice folks but decided that she was not ready for that. She has a history of renal failure and is on dialysis 3 times weekly. She is still fairly functional at home in [place], [place]. She lives by herself and involves her son s in decision making. PAST MEDICAL HISTORY: 1. End-stage renal disease, requiring hemodialysis. 2. Post-bladder resection and bilateral nephrectomies for bladder cancer. 3. Metastasis to the lungs. 4. Atrial fibrillation. 4. Hypertension. PAST SURGICAL HISTORY: Bladder and kidney resection, appendectomy and cholecystectomy. MEDICATIONS PRIOR TO ADMISSION: Albuterol, diltiazem, Dilaudid, lovastatin, Renvela, Requip. She is also on home oxygen. SOCIAL HISTORY: Never a smoker. Does not consume alcohol. REVIEW OF SYSTEMS: Notable for weight loss, shortness of breath. No fever or chills. Remaining 12- point review of systems negative. PHYSICAL EXAMINATION: VITAL SIGNS: Temperature 97.5, pulse 64, respirations 16, O2 sat 96%, blood pressure 121/52. HEENT: Remarkable for alopecia. NECK: No adenopathy or JVD. LUNGS: She has diminished breath sounds in both bases, particularly left base. CARDIOVASCULAR: S1, S2 regular. ABDOMEN: Soft, nontender, nondistended. EXTREMITIES: No clubbing, cyanosis, or edema. She has extensive weight loss noted with decreased mu scle mass. The CT scan was reviewed and results are as noted above. Of note, she also has no pulmon jesse emboli. ASSESSMENT: The findings on CT, particularly the left lower lobe atelectasis, likely represents endo bronchial metastasis with subsequent postobstructive atelectasis. She also has some pleural findings outside of that. The right-sided mass is also noted. In my opinion, this is extensive bladder canc er and not mucus plugging. RECOMMENDATIONS: 1. I have told the patient that bronchoscopy would only be necessary if we were going to re-diagnose cancer and she was going to take further treatment, which she is not inclined to do. I think the be st we can do is hospice care and maintain her on home oxygen. Should she prefer to engage in further workup, then I would first request records and films from her oncologist in [place]. 2. She could have postobstructive pneumonitis and it would be reasonable to finish a course of antib iotics over 7-10 days. Again, I do not think this is going to provide her much in the way of benefit in the intermediate. I have spoken with Dr. Garcia regarding the recommendations. I will be glad to se e her in the future as needed.
--- NOTE | 2017-11-25 14:45 | HP ---
PRIMARY CARE PHYSICIAN: Pedro Luis Sosa M.D. CHIEF COMPLAINT: Cough. HISTORY OF PRESENT ILLNESS: Mr. Osorio is a pleasant 82-year-old lady who was seen at [facility] on 11/25/2017. She was hospitalized at this facility from 11/18/2017 to 11/19/2017 for shortness of breath and acute hypoxic respiratory failure. She was seen by Cardiology Service at that time and there was discussi on regarding defibrillator versus LifeVest. The patient is scheduled to follow up with Cardiology Se rvice next week as outpatient. She reports that over the last few days she has had progressively worsening shortness of breath. She denies any orthopnea. She reports shortness of breath with exertion. She also reports cough that i s productive of occasionally blood tinged sputum. She denies any fevers or chills. She denies any n ausea or vomiting. REVIEW OF SYSTEMS: The following complete review of systems was negative, unless otherwise mentioned in the HPI or below: Constitutional: Weight loss or gain, ability to conduct usual activities. Skin: Rash, itching. Eyes: Double vision, pain. ENT/Mouth: Nose bleeding, neck stiffness, pain, tenderness. Cardiovascular: Palpitations, dyspnea on exertion, orthopnea. Respiratory: Shortness of breath, wheezing, cough, hemoptysis, fever or night sweats. Gastrointestinal: Poor appetite, abdominal pain, heartburn, nausea, vomiting, constipation, or diarrhea. Genitourinary: Urgency, frequency, dysuria, nocturia. Musculoskeletal: Pain, swelling. Neurologic/Psychiatric: Anxiety, depression. Allergy/Immunologic: Skin rash, bleeding tendency. PAST MEDICAL HISTORY: Significant for bilateral nephrectomies for bladder cancer necessitating hemod ialysis since 2007, paroxysmal atrial fibrillation, hypertension, cardiomyopathy with left ventricula r ejection fraction of 25%-30% on 11/18/2017. PAST SURGICAL HISTORY: Significant for bladder resection, bilateral nephrectomy, appendectomy, and c holecystectomy. ALLERGIES: No known drug allergies. FAMILY HISTORY: Significant for myocardial infarction in her mother. SOCIAL HISTORY: The patient denies tobacco use, alcohol use or recreational drug use. CODE STATUS: I discussed her code status. She is FULL CODE. CURRENT MEDICATIONS: Include albuterol inhalation p.r.n., vitamin B12 1000 mcg daily, diltiazem 240 mg daily, hydromorphone 2 mg every 4 hours as needed, lovastatin 20 mg daily, Renvela 2.4 grams 3 gerry es a day, ropinirole 1 mg daily, and sertraline 50 mg daily. PHYSICAL EXAMINATION: GENERAL: Ms. Osorio is awake and alert, not in acute distress. VITAL SIGNS: Blood pressure is 130/60, pulse is 64. She is breathing at rate of 16 and saturating 9 5% on 4 liters of oxygen. She is afebrile. EYES: No scleral icterus. No conjunctival pallor. ENT: Moist mucosal membranes. No oropharyngeal erythema or exudates. NECK: Supple, nontender, normal range of movement. Trachea is midline. RESPIRATORY: Accessory muscles of breathing are not active. Chest wall movements are symmetric bila terally. LUNGS: Clear to auscultation without wheeze, rhonchi or crepitations. She does have diminished [place] th sounds over both bases. ABDOMEN: Soft, nontender, bowel sounds are heard, no hepatomegaly, no splenomegaly. CARDIOVASCULAR: S1 and S2 are heard, regular, no carotid bruit, no pericardial rub. NEUROLOGIC: Cranial nerves II-XII intact. Deep tendon reflexes are 2+. MUSCULOSKELETAL: Power is 5/5 in all 4 extremities, normal range of movement at all major extremity joints. LYMPHATIC: No cervical lymphadenopathy. SKIN: No rashes or subcutaneous nodules. PSYCHIATRIC: Normal mood, normal affect, patient is oriented to person, place, and time. LABORATORY DATA: Ms. Osorio's labs and investigations were reviewed. I reviewed her electrocardiogra m, which shows normal sinus rhythm, no ST changes to suggest an acute coronary syndrome. I also revi ewed her chest x-ray, which shows a large right pulmonary mass, also seen on previous chest x-ray. C T angiogram of the chest was also done and did not reveal any pulmonary embolism. The radiologist re ports multifocal pleural based masses throughout the right hemithorax, worrisome for metastases. He also reports complete lobar consolidation of the left and right lower lobe with heterogenous enhancem ent, which may be due to infection or tumor. She has elevated white count of 13,600, normal hemoglobin, normal platelet count, INR 1.1, normal brandon ctrolytes, elevated creatinine of 4.74, decreased albumin of 3.2 and an unremarkable liver profile. Troponin I is normal. BNP is elevated at 12,540. ASSESSMENT AND PLAN: Ms. Osorio is a pleasant 82-year-old lady who was seen at [facility] on 11/25/2017. Her problem list includes: 1. Shortness of breath and cough: Likely secondary to bronchitis. She will be admitted to the hosp ital and treated with antibiotics. 2. Lung mass: Consult Pulmonology for opinion and help with further management. 3. End-stage renal disease, on dialysis. Consult Nephrology for maintenance hemodialysis. 4. Hypertension: Monitor vital signs, titrate antihypertensives as needed. 5. Cardiomyopathy: The patient to follow up with her pattern layout worker as outpatient. Many thanks for allowing me to participate in your patient's care. Please feel free to contact me wi th any questions or concerns. LEVEL OF RISK: High. LEVEL OF COMPLEXITY: High.
--- NOTE | 2017-11-25 21:04 | CON ---
DATE OF CONSULTATION: 11/25/2017 CONSULTING PHYSICIAN: Dr. Garcia. REASON FOR CONSULTATION: End-stage renal disease evaluation and care. REASON FOR ADMISSION: Cough. HISTORY OF PRESENT ILLNESS: This 82-year-old female with a history of end-stage renal disease, hyper tension, bladder cancer, atrial fibrillation, cardiomyopathy, who came to the hospital with cough. T he patient gets dialysis on Tuesday, Tuesday, and Tuesday, due for dialysis today. PAST MEDICAL HISTORY: Positive for bladder cancer, atrial fibrillation, hypertension, cardiomyopathy . PAST SURGICAL HISTORY: Bilateral nephrectomy, bladder resection, appendectomy, cholecystectomy. ALLERGIES: No known drug allergies. HOME MEDICATIONS: Albuterol, vitamin B12, diltiazem, hydromorphone, lovastatin, Renvela, allopurinol , sertraline. FAMILY HISTORY: No history of kidney disease. REVIEW OF SYSTEMS: The following complete review of systems was negative, unless otherwise mentioned in the HPI or below: Constitutional: Weight loss or gain, ability to conduct usual activities. Skin: Rash, itching. Eyes: Double vision, pain. ENT/Mouth: Nose bleeding, neck stiffness, pain, tenderness. Cardiovascular: Palpitations, dyspnea on exertion, orthopnea. Respiratory: Shortness of breath, wheezing, cough, hemoptysis, fever or night sweats. Gastrointestinal: Poor appetite, abdominal pain, heartburn, nausea, vomiting, constipation, or diarr hea. Genitourinary: Urgency, frequency, dysuria, nocturia. Musculoskeletal: Pain, swelling. Neurologic/Psychiatric: Anxiety, depression. Allergy/Immunologic: Skin rash, bleeding tendency. SOCIAL HISTORY: No smoking, alcohol or illicit drug abuse. PHYSICAL EXAMINATION: GENERAL: This is a well-built female in no apparent distress. VITAL SIGNS: Temperature 98.2, pulse 64, respirations 16, blood pressure 130/60. HEENT: Atraumatic, normocephalic. Oral mucosa is moist. NECK: Supple. CARDIOVASCULAR: S1, S2 heard. Rate and rhythm regular. RESPIRATORY: Clear. GASTROINTESTINAL: Abdomen is soft. MUSCULOSKELETAL: No tenderness or edema. DERMATOLOGIC: No skin rash. NEUROLOGIC: Alert, awake. PSYCHIATRIC: Mood and affect normal. LABORATORY DATA: Hemoglobin is 12.5, potassium is 4.7, BUN 23, creatinine is 4.7. ASSESSMENT AND PLAN: 1. End-stage renal disease. Continue on dialysis Tuesday, Tuesday, and Tuesday. 2. Elevated BNP. 3. Fluid overload. Remove fluid with dialysis. 4. Anemia. Hemoglobin is stable. 5. Edema, controlled. 6. Hypertension, stable. 7. We will have dialysis Tuesday, Tuesday, and Tuesday as tolerated. Thank you for the consult.
[2017-11-25] MEDS: Cefdinir 300 MG CAP PO SCH (21:17)
[2017-11-25] MEDS ORDERED: Melatonin 3 MG TAB PO SCH (23:30)
[2017-11-25] MEDS: rOPINIRole HCl 1 MG TAB PO PRN (23:42)
[2017-11-26] MEDS ORDERED: HYDROmorphone 2 MG TAB PO SCH (00:45)
[2017-11-26 04:51] LABS: #Eosinphils 0.4 thou/uL (0.0-0.7); #Lymphocytes 1.5 thou/uL (1.20-3.40); #Monocytes 1.3 thou/uL (0.11-0.59); #Neutrophils 8.9 thou/uL (1.40-6.50); %Basophils 0.4 % (0.0-1.0); %Eosinophils 3.1 % (0.0-10.0); %Lymphocytes 12.5 % (21.0-51.0); %Monocytes 10.8 % (0.0-10.0); %Neutrophils 73.2 % (42.0-75.0); Mean Corpuscular HGB CONC 31.9 g/dL (32.0-36.0); Mean Corpuscular Hemoglobin 28.9 pg (27.0-31.0); Mean Corpuscular Volume 90.7 fl (81.0-99.0); Platelet Count 316 thou/uL (130-400); RBC Distribution Width 18.3 % (11.5-14.5); Red Blood Cell (RBC) Count 4.51 mill/uL (4.20-5.40); White Blood Cell (WBC) Count 12.2 thou/uL (4.8-10.8)
[2017-11-26 04:56] LABS: Anion Gap 13 mmol/L (10-20); BUN (Urea Nitrogen) 11 mg/dL (9.8-20.1); Calc. Creatinine Clearance 10 mL/min (70-130); Calcium 9.4 mg/dL (7.8-10.44); Carbon Dioxide 32 mmol/L (23-31); Chloride 95 mmol/L (98-107); Estimated GFR-MDRD 15; Glucose 87 mg/dL (83-110); Potassium 3.5 mmol/L (3.5-5.1); Sodium 136 mmol/L (136-145)
[2017-11-26] MEDS ORDERED: HYDROmorphone 2 MG TAB PO PRN (08:10)
[2017-11-26] MEDS ORDERED: Albuterol Sulfate 2.5 mg/3 ml Neb NEB PRN (08:10)
[2017-11-26] MEDS ORDERED: Midodrine HCl 5 MG TAB PO PRN (08:10)
[2017-11-26] MEDS ORDERED: Ondansetron HCl/PF 4 MG/2 ML Vial IVP PRN (08:11)
[2017-11-26] MEDS ORDERED: Loratadine 10 MG TAB PO PRN (08:11)
[2017-11-26] MEDS ORDERED: Sodium Chloride 0.65% Nasal 44 ML BOT EA NARE PRN (08:11)
[2017-11-26] MEDS ORDERED: Mag-Al 1200 mg/1200 mg/30 ML UDCUP PO PRN (08:11)
[2017-11-26] MEDS ORDERED: Milk Of Magnesia 30 ML UDCUP PO PRN (08:11)
[2017-11-26] MEDS ORDERED: Eucerin (Mineral Oil/Petrolatum,White) 30 gm Jar TOP PRN (08:11)
[2017-11-26] MEDS ORDERED: Artificial Tears 18 DROP/0.9 ML EA EYE PRN (08:11)
[2017-11-26] MEDS ORDERED: Chloraseptic Spray 180 ml Bottle PO PRN (08:11)
[2017-11-26] MEDS ORDERED: Loperamide HCl 2 MG CAP PO PRN (08:11)
[2017-11-26] MEDS ORDERED: hydrALAZINE 20 MG/ML VIAL SLOW IVP PRN (08:11)
[2017-11-26] MEDS ORDERED: Diabetic Tussin 200 MG/10 ML UDCUP PO PRN (08:11)
[2017-11-26] MEDS ORDERED: Temazepam 15 MG CAP PO PRN (08:11)
[2017-11-26] MEDS ORDERED: Ondansetron ODT 4 MG TAB PO PRN (08:11)
[2017-11-26] MEDS: Cyanocobalamin (Vitamin B-12) 1,000 MCG TAB PO SCH (09:16)
[2017-11-26] MEDS: Cefdinir 300 MG CAP PO SCH ×2 (09:16→20:46)
[2017-11-26] MEDS: Heparin 5,000 UNITS/ML VIAL SC SCH ×3 (09:17→20:45)
[2017-11-26] MEDS: Famotidine 20 MG TAB PO SCH ×2 (09:17→20:46)
--- NOTE | 2017-11-26 10:49 | PDOC.PN ---
- Subjective Encounter Start Date: 11/26/17 Encounter Start Time: 07:40 Patient seen and examined. No new complaints. No overnight events - Objective Resuscitation Status: Resuscitation Status FULL:Full Resuscitation MAR Reviewed: Yes Vital Signs & Weight: Vital Signs (12 hours) Temp Pulse Resp BP BP Pulse Ox 11/26/17 09:16 86 142/60 H 11/26/17 08:00 98.4 F 86 16 142/60 H 92 L 11/26/17 07:50 98.0 F 71 20 96 11/26/17 03:52 98.0 F 71 20 126/54 L 97 11/26/17 00:00 98.2 F 85 18 134/62 94 L Weight Weight 99 lb 12.8 oz I&O: 11/25/17 11/26/17 11/27/17 06:59 06:59 06:59 Intake Total 300 Balance 300 Result Diagrams: 11/26/17 04:22 11/26/17 04:22 EKG Reviewed by me: Yes Phys Exam - Physical Examination Constitutional: NAD HEENT: PERRLA, moist MMs, sclera anicteric, oral pharynx no lesions Neck: no JVD, supple Respiratory: no wheezing, no rales, no rhonchi reduced air entry Cardiovascular: RRR, no significant murmur, no rub Gastrointestinal: soft, non-tender, no distention, positive bowel sounds Musculoskeletal: no edema, pulses present Neurological: non-focal, normal sensation, moves all 4 limbs Lymphatic: no nodes Psychiatric: normal affect, A&O x 3 Skin: no rash, normal turgor Dx/Plan (1) Acute and chronic respiratory failure with hypoxia Code(s): J96.21 - ACUTE AND CHRONIC RESPIRATORY FAILURE WITH HYPOXIA Status: Acute (2) Atelectasis of left lung Code(s): J98.11 - ATELECTASIS Status: Acute (3) Mass of lower lobe of right lung Code(s): R91.8 - OTHER NONSPECIFIC ABNORMAL FINDING OF LUNG FIELD Status: Acute (4) Mucus plugging of bronchi Code(s): J98.09 - OTHER DISEASES OF BRONCHUS, NOT ELSEWHERE CLASSIFIED Status : Acute (5) Pneumonia Code(s): J18.9 - PNEUMONIA, UNSPECIFIED ORGANISM Status: Acute (6) Anxiety and depression Code(s): F41.9 - ANXIETY DISORDER, UNSPECIFIED; F32.9 - MAJOR DEPRESSIVE DISORDER, SINGLE EPISODE, UNSPECIFIED Status: Chronic (7) Chronic systolic congestive heart failure Code(s): I50.22 - CHRONIC SYSTOLIC (CONGESTIVE) HEART FAILURE Status: Chronic (8) Dyslipidemia Code(s): E78.5 - HYPERLIPIDEMIA, UNSPECIFIED Status: Chronic (9) ESRD (end stage renal disease) on dialysis Code(s): N18.6 - END STAGE RENAL DISEASE; Z99.2 - DEPENDENCE ON RENAL DIALYSIS Status: Chronic (10) Hypertension Code(s): I10 - ESSENTIAL (PRIMARY) HYPERTENSION Status: Chronic (11) Secondary hyperparathyroidism of renal origin Code(s): N25.81 - SECONDARY HYPERPARATHYROIDISM OF RENAL ORIGIN Status: Chronic - Plan cont current plan of care, continue antibiotics, respiratory therapy * pt has home oxygen * will consult embedded case manager for home hospice * pt does not want to go for aggressive testing * continue MWF HD * medication reviewed as below * symptomatic treatment * supportive care. Review of Systems - Review of Systems Constitutional: negative: fever, chills, sweats, weakness, malaise, other Eyes: negative: Pain, Vision Change, Conjunctivae Inflammation, Eyelid Inflammation, Redness, Other ENT: negative: Ear Pain, Ear Discharge, Nose Pain, Nose Discharge, Nose Congestion, Mouth Pain, Mouth Swelling, Throat Pain, Throat Swelling, Other Respiratory: Cough, Shortness of Breath, SOB with Excertion. negative: Dry, Hemoptysis, Pleuritic Pain, Sputum, Wheezing Cardiovascular: negative: chest pain, palpitations, orthopnea, paroxysmal nocturnal dyspnea, edema, light headedness, other Gastrointestinal: negative: Nausea, Vomiting, Abdominal Pain, Diarrhea, Constipation, Melena, Hematochezia, Other Genitourinary: negative: Dysuria, Frequency, Incontinence, Hematuria, Retention , Other Musculoskeletal: negative: Neck Pain, Shoulder Pain, Arm Pain, Back Pain, Hand Pain, Leg Pain, Foot Pain, Other Skin: negative: Rash, Lesions, Yann, Bruising, Other - Medications/Allergies Allergies/Adverse Reactions: Allergies Allergy/AdvReac Type Severity Reaction Status Date / Time No Known Drug Allergies Allergy Verified 11/18/17 06:34 Medications: Current Medications Acetaminophen (Tylenol) 650 mg PO Q4H PRN PRN Reason: Headache/Fever or Pain Last Admin: 11/25/17 22:49 Dose: 650 mg Acetaminophen (Tylenol) 650 mg LA Q4H PRN PRN Reason: Headache/Fever or Pain Al Hydroxide/Mg Hydroxide (Maalox) 15 ml PO Q4H PRN PRN Reason: Heartburn or Indigestion Albuterol Sulfate (Ventolin) 2.5 mg NEB Q4H PRN PRN Reason: Dyspnea Artificial Tears (Tears Naturale) 0 drop EA EYE PRN PRN PRN Reason: Dry Eyes Aspirin (Aspirin Chewable) 81 mg PO DAILY [facility] Last Admin: 11/26/17 09:16 Dose: 81 mg Bisacodyl (Dulcolax) 10 mg PO DAILYPRN PRN PRN Reason: Constipation Carvedil[facility] (Coreg) 3.[facility] Cefdinir (Omnicef) 300 mg PO BID [facility] Last Admin: 11/26/17 09:16 Dose: 300 mg Cyanocobalamin (Vitamin B-12) 1,000 mcg PO DAILY [facility] Last Admin: 11/26/17 09:16 Dose: 1,000 mcg Diltiazem HCl (Cardizem Cd) 240 mg PO DAILY [facility] Last Admin: 11/26/17 09:16 Dose: 240 mg Famotidine (Pepcid) 20 mg PO BID [facility] Last Admin: 11/26/17 09:17 Dose: 20 mg Guaifenesin (Robitussin Sf) 200 mg PO Q4H PRN PRN Reason: Cough Heparin Sodium (Porcine) (Heparin) 5,000 units SC TID [facility] Last Admin: 11/26/17 09:17 Dose: 5,000 units Hydralazine HCl (Apresoline) 10 mg SLOW IVP Q4H PRN PRN Reason: Systolic BP > 180 Hydromorphone HCl (Dilaudid) 1 mg PO Q4HR PRN PRN Reason: Pain Levofloxacin 750 mg/ Device 150 mls @ 100 mls/hr IVPB Q24HR [facility] Last Admin: 11/25/17 17:50 Dose: Not Given Loperamide HCl (Imodium) 2 mg PO PRN PRN PRN Reason: Diarrhea/Loose Stools Loratadine (Claritin) 10 mg PO DAILYPRN PRN PRN Reason: Sinus Symptoms Magnesium Hydroxide (Milk Of Magnesium) 30 ml PO DAILYPRN PRN PRN Reason: Constipation Midodrine (Proamatine) 5 mg PO PRN PRN PRN Reason: Hypotension Mineral Oil/White Petrolatum (Eucerin Cream) 0 gm TOP BIDPRN PRN PRN Reason: Dry Skin Ondansetron HCl (Zofran Odt) 4 mg PO Q6H PRN PRN Reason: Nausea/Vomiting Ondansetron HCl (Zofran) 4 mg IVP Q6H PRN PRN Reason: Nausea/Vomiting Phenol (Chloraseptic [place] 180 Ml Bot) 0 ml PO PRN PRN PRN Reason: Sore Throat Ropinirole HCl (Requip) 1 mg PO HSPRN PRN PRN Reason: Insomnia Last Admin: 11/25/17 23:42 Dose: 1 mg Sertraline HCl (Zoloft) 50 mg PO DAILY [facility] Last Admin: 11/26/17 09:17 Dose: 50 mg Sevelamer Carbonate (Renvela) 2,400 mg PO TID-[facility] Simvastatin (Zocor) 10 mg PO QPM-[facility] Sodium Chloride (Flush - Normal Saline) 10 ml IVF Q12HR [facility] Last Admin: 11/26/17 09:17 Dose: 10 ml Sodium Chloride (Flush - Normal Saline) 10 ml IVF PRN PRN PRN Reason: Saline Flush Last Admin: 11/25/17 16:24 Dose: 10 ml Sodium Chloride ([place] Nasal [place] 0.65%) 0 ml EA NARE QIDPRN PRN PRN Reason: Nasal Congestion Temazepam (Restoril) 15 mg PO HSPRN PRN PRN Reason: Insomnia
[2017-11-26] MEDS: Sevelamer Carbonate 800 MG TAB PO SCH ×2 (11:37→17:17)
--- NOTE | 2017-11-26 14:10 | PRG ---
DATE OF SERVICE: 11/26/2017 SUBJECTIVE: The patient is about the same. She had no acute complaints. PHYSICAL EXAMINATION: VITAL SIGNS: Temperature 97.6, pulse 68, respirations 14, O2 sat 95%, blood pressure 127/64. HEENT: Unremarkable. NECK: No JVD. LUNGS: Diminished, but clear breath sounds. CARDIAC: S1 and S2 regular. ABDOMEN: Soft. EXTREMITIES: No edema. LABORATORY DATA: White blood cell count 12, hematocrit 40, and platelet count 316. Sodium 136, pota ssium 3.5, BUN 11, creatinine 3.0 and glucose 87. ASSESSMENT: Metastatic bladder cancer with probable left lower lobe collapse secondary to that. RECOMMENDATION: Home with hospice. No further workup indicated from pulmonary standpoint. Please r bill if further assistance needed.
--- NOTE | 2017-11-26 16:25 | PRG ---
DATE OF SERVICE: 11/26/2017 SUBJECTIVE: Patient was seen and examined at bedside and overnight events noted. Patient denies any shortness of breath or chest pain or palpitation. No history of nausea or vomitin g or diarrhea or fever or chills or cramps. OBJECTIVE: GENERAL: This is a well-built male, in no apparent distress. VITAL SIGNS: Temperature 98.0, pulse 60, respiratory rate 14, blood pressure 128/78. HEENT: Atraumatic, normocephalic. Oral mucosa is moist NECK: Supple. CARDIOVASCULAR: S1 and S2 heard. Rate and rhythm regular. RESPIRATORY: Clear to auscultation. GASTROINTESTINAL: Abdomen is soft. MUSCULOSKELETAL: No tenderness. No edema. DERMATOLOGIC: No skin rash. NEUROLOGIC: Alert and awake and oriented X3, No focal neurologic deficits. Moving all the extremitie s. PSYCHIATRIC: Mood and affect normal. LABORATORY DATA: Potassium is 3.5, BUN 11, creatinine is 3.04. ASSESSMENT AND PLAN: 1. End-stage renal disease, continue on hemodialysis Tuesday, Tuesday, and Tuesday. 2. Fluid overload. 3. Edema. 4. Hypertension. 5. Anemia. Plan is to continue on dialysis as tolerated.
[2017-11-26] MEDS ORDERED: Simvastatin 5 MG TAB PO SCH (17:00)
[2017-11-26] MEDS: Carvedilol 3.125 MG TAB PO SCH (17:17)
[2017-11-26] MEDS: rOPINIRole HCl 1 MG TAB PO PRN (20:46)
[2017-11-27 06:39] VITALS: BMI 19.1
[2017-11-27 07:47] VITALS: BP 158/64; TEMP 98.2
[2017-11-27] MEDS: Famotidine 20 MG TAB PO SCH (08:22)
[2017-11-27] MEDS: Cefdinir 300 MG CAP PO SCH (08:22)
[2017-11-27] MEDS: Sevelamer Carbonate 800 MG TAB PO SCH (08:24)
[2017-11-27] MEDS: Carvedilol 3.125 MG TAB PO SCH (08:24)
[2017-11-27] MEDS: Heparin 5,000 UNITS/ML VIAL SC SCH (08:24)
[2017-11-27] MEDS: Cyanocobalamin (Vitamin B-12) 1,000 MCG TAB PO SCH (08:24)
--- NOTE | 2017-11-27 10:01 | PDOC.PN ---
- Subjective Encounter Start Date: 11/27/17 Encounter Start Time: 07:50 Patient seen and examined. No new complaints. No overnight events - Objective Resuscitation Status: Resuscitation Status FULL:Full Resuscitation MAR Reviewed: Yes Vital Signs & Weight: Vital Signs (12 hours) Temp Pulse Resp BP Pulse Ox 11/27/17 08:30 98.2 F 75 14 94 L 11/27/17 08:24 75 11/27/17 07:46 98.2 F 75 14 158/64 H 94 L 11/27/17 03:30 97.8 F 68 16 142/64 H 95 11/27/17 00:16 98.2 F 70 16 139/56 L 95 Weight Weight 101 lb 4.8 oz I&O: 11/26/17 11/27/17 11/28/17 06:59 06:59 06:59 Intake Total 900 Balance 900 Result Diagrams: 11/26/17 04:22 11/26/17 04:22 EKG Reviewed by me: Yes Phys Exam - Physical Examination Constitutional: NAD HEENT: PERRLA, moist MMs, sclera anicteric Neck: no JVD, supple Respiratory: no wheezing, no rales, no rhonchi Cardiovascular: RRR, no significant murmur, no rub Gastrointestinal: soft, non-tender, no distention, positive bowel sounds Musculoskeletal: no edema, pulses present Neurological: non-focal, normal sensation, moves all 4 limbs Lymphatic: no nodes Psychiatric: normal affect, A&O x 3 Skin: no rash, normal turgor Dx/Plan (1) Acute and chronic respiratory failure with hypoxia Code(s): J96.21 - ACUTE AND CHRONIC RESPIRATORY FAILURE WITH HYPOXIA Status: Acute (2) Atelectasis of left lung Code(s): J98.11 - ATELECTASIS Status: Acute (3) Mass of lower lobe of right lung Code(s): R91.8 - OTHER NONSPECIFIC ABNORMAL FINDING OF LUNG FIELD Status: Acute (4) Mucus plugging of bronchi Code(s): J98.09 - OTHER DISEASES OF BRONCHUS, NOT ELSEWHERE CLASSIFIED Status : Acute (5) Pneumonia Code(s): J18.9 - PNEUMONIA, UNSPECIFIED ORGANISM Status: Acute (6) Anxiety and depression Code(s): F41.9 - ANXIETY DISORDER, UNSPECIFIED; F32.9 - MAJOR DEPRESSIVE DISORDER, SINGLE EPISODE, UNSPECIFIED Status: Chronic (7) Chronic systolic congestive heart failure Code(s): I50.22 - CHRONIC SYSTOLIC (CONGESTIVE) HEART FAILURE Status: Chronic (8) Dyslipidemia Code(s): E78.5 - HYPERLIPIDEMIA, UNSPECIFIED Status: Chronic (9) ESRD (end stage renal disease) on dialysis Code(s): N18.6 - END STAGE RENAL DISEASE; Z99.2 - DEPENDENCE ON RENAL DIALYSIS Status: Chronic (10) Hypertension Code(s): I10 - ESSENTIAL (PRIMARY) HYPERTENSION Status: Chronic (11) Secondary hyperparathyroidism of renal origin Code(s): N25.81 - SECONDARY HYPERPARATHYROIDISM OF RENAL ORIGIN Status: Chronic - Plan cont current plan of care, plan discussed w/ family, continue antibiotics * medication reviewed as below * symptomatic treatment * omnicef for 10 days * hospice at home * stable for discharge * see discharge partha. Review of Systems - Review of Systems Constitutional: negative: fever, chills, sweats, weakness, malaise, other Eyes: negative: Pain, Vision Change, Conjunctivae Inflammation, Eyelid Inflammation, Redness, Other ENT: negative: Ear Pain, Ear Discharge, Nose Pain, Nose Discharge, Nose Congestion, Mouth Pain, Mouth Swelling, Throat Pain, Throat Swelling, Other Respiratory: negative: Cough, Dry, Shortness of Breath, Hemoptysis, SOB with Excertion, Pleuritic Pain, Sputum, Wheezing Cardiovascular: negative: chest pain, palpitations, orthopnea, paroxysmal nocturnal dyspnea, edema, light headedness, other Gastrointestinal: negative: Nausea, Vomiting, Abdominal Pain, Diarrhea, Constipation, Melena, Hematochezia, Other Genitourinary: negative: Dysuria, Frequency, Incontinence, Hematuria, Retention , Other Musculoskeletal: negative: Neck Pain, Shoulder Pain, Arm Pain, Back Pain, Hand Pain, Leg Pain, Foot Pain, Other Skin: negative: Rash, Lesions, Yann, Bruising, Other - Medications/Allergies Allergies/Adverse Reactions: Allergies Allergy/AdvReac Type Severity Reaction Status Date / Time No Known Drug Allergies Allergy Verified 11/18/17 06:34
--- NOTE | 2017-11-27 11:24 | DIS ---
DATE OF ADMISSION: 11/25/2017 DATE OF DISCHARGE: 11/27/2017 PRIMARY CARE PHYSICIAN: Dr. Pedro Luis Sosa. DISCHARGE DISPOSITION: Home with home hospice. PRIMARY DISCHARGE DIAGNOSES: Acute on chronic respiratory failure with hypoxia, left lung atelectasi s, right lower lobe lung mass, mucous plugging of bronchopneumonia, postobstructive pneumonia. SECONDARY DISCHARGE DIAGNOSES: Secondary hyperparathyroidism of renal origin, hypertension, end-stag e renal disease on hemodialysis, dyslipidemia, chronic systolic congestive heart failure, anxiety and depression, anemia of renal disease, physical deconditioning, chronic respiratory failure, history o f bladder cancer. PRIMARY PROCEDURE/OPERATION: None. RADIOLOGICAL INVESTIGATION: Chest x-ray on admission showed bilateral moderate sized pleural effusio n, cardiomegaly, large right pulmonary mass. CT angiography showed no evidence of pulmonary embolism , but it showed right lower lobe lung mass, left lower lobe consolidation, atelectasis, mucus pluggin g of the bronchi, pleural effusion, hepatosplenomegaly. SIGNIFICANT LABORATORY DATA: WBC 12.2, hemoglobin 13.0, platelet 316. INR 1.1. Sodium 136, creatin ine 3.04. Liver enzymes normal. Cardiac enzymes negative. BNP 12,540. DISCHARGE MEDICATIONS: Albuterol sulfate nebulization q.4 hours p.r.n., ProAir HFA 2 puffs q.4 hours p.r.n., aspirin 81 mg p.o. daily, Coreg 3.125 mg p.o. b.i.d., Omnicef 300 mg p.o. b.i.d. for 10 days , vitamin B12 1000 mcg p.o. daily, Cardizem-CD 240 mg p.o. daily, Dilaudid 1 mg q.4 hours p.r.n., isaac astatin 20 mg p.o. at bedtime, midodrine 5 mg p.o. p.r.n., ropinirole 1 mg p.o. daily and 1 mg p.o. a t bedtime p.r.n., Zoloft 50 mg p.o. daily, Renvela 2.4 grams p.o. t.i.d. CONTRAINDICATIONS: The patient is not on JULIAN inhibitor and ARB in view of systolic heart failure, be cause of ESRD. INPATIENT CONSULTANTS: Dr. Serrano was following for hemodialysis. Dr. Prado was following for flo ng mass. TEST RESULTS PENDING ON DISCHARGE: None. ALLERGIES: No known drug allergy. DISCHARGE PLAN: Post hospital, the patient will follow up with Cardiology, Dr. Welsh, on 018 at 11:15 a.m. Patient will follow up with primary care physician, Dr. Pedro Luis Sosa on 12/01 at 3:00 p.m. The patient will have regular hemodialysis on an outpatient basis. Patient is ad vised to follow with Pulmonology if needed. HOSPITAL COURSE: An 82-year-old female who was admitted by Dr. Garcia, please see his H&P for further detail. She came to emergency room with increasing shortness of breath. She was found with right l ower lobe lung mass as well as left lower lobe atelectasis and a postobstructive pneumonia. Patient also had mucous plugging in the bronchi. The patient was admitted to telemetry floor. She was treat ed with broad spectrum IV antibiotic therapy initially with levofloxacin and Rocephin, and Dr. Cesar mathews was consulted. Dr. Prado recommended that this patient do need bronchoscopy, but patient and yamilet howard's family member does not want to go for any kind of aggressive intervention. Patient was DNR wh ile in hospital. The patient decided to go conservative therapy. She does not want to go for any ch emotherapy route or any diagnosis of her lung mass. We offered hospice care at home and patient accepted that option and with help of disability case manager, we ar e arranging home hospice. Today, the patient is making hurry to go home because she has family get together today later on and that is why she expressed her wish to go home. The patient wants to talk to Hospice team at home. All new medication prescription sent to her pharmacy. We are continuing all previous medication as w ell. The patient is seen and examined at bedside today. Please see my progress note from today for furthe r detail. Plan of care discussed with the patient's son as well.
--- NOTE | 2017-12-29 15:05 | EKG ---
Test Reason : SOB Blood Pressure : / mmHG Vent. Rate : 065 BPM Atrial Rate : 065 BPM P-R Int : 168 ms QRS Dur : 142 ms QT Int : 432 ms P-R-T Axes : 052 -52 105 degrees QTc Int : 449 ms Normal sinus rhythm Possible Left atrial enlargement Left axis deviation Left bundle branch block Abnormal ECG Confirmed by PATSY BONDS ([id number]), videotape editor RICHARD LICEA ([id number]) on 12/29/2017 3:04:09 PM Referred By: Confirmed By:PATSY BONDS
== END 2017-11-27 09:45 | disposition hospice, home (50) | DRG 193 ==
LOC: ERS 21:41 → 2SE 11-25 01:00
PROVIDERS: ADMIT Internal Medicine; ATTEND Internal Medicine
PROC: 5A1D70Z Performance of Urinary Filtration, Intermittent, Less than 6 Hours Per Day (ICD-10-PCS; principal; 2017-11-25)
DX: J18.8 Other pneumonia, unspecified organism (principal); N18.6 End stage renal disease; J96.21 Acute and chronic respiratory failure with hypoxia; I13.2 Hypertensive heart and chronic kidney disease with heart failure and with stage 5 chronic kidney disease, or end stage renal disease; C78.02 Secondary malignant neoplasm of left lung; I42.9 Cardiomyopathy, unspecified; E87.70 Fluid overload, unspecified; I48.91 Unspecified atrial fibrillation; I50.22 Chronic systolic (congestive) heart failure; N25.81 Secondary hyperparathyroidism of renal origin; J98.11 Atelectasis; R91.8 Other nonspecific abnormal finding of lung field; Z99.2 Dependence on renal dialysis; D63.1 Anemia in chronic kidney disease; E78.5 Hyperlipidemia, unspecified; F41.9 Anxiety disorder, unspecified; F32.9 Major depressive disorder, single episode, unspecified; Z53.29 Procedure and treatment not carried out because of patient's decision for other reasons; Z66 Do not resuscitate; Z90.5 Acquired absence of kidney; Z90.6 Acquired absence of other parts of urinary tract; J98.09 Other diseases of bronchus, not elsewhere classified
CPT/HCPCS: 36415; 71045; 71275; 80048; 80053; 82553; 83880; 84484; 85025; 85610; 85730; 87040; 90935; 93005; 96365; A4216; G0257; J0692; J1644; J1956; J2543; J7050